=== PATIENT | female | born 1995 | race Caucasian/White ===

== ENCOUNTER 2016-06-16 19:10 | Emergency (ER) | payer MEDICAID ==
--- NOTE | 2016-06-16 19:32 | Emergency Department Record ---
History of Present Illness - General Chief Complaint: Headache Migraine Stated Complaint: EDMONDSON FOR TWO WEEKS Time Seen by Provider: 06/16/16 19:31 Source: Patient Mode of Arrival: Ambulatory Limitations: No limitations - History of Present Illness Initial Comments: The patient is here due to gradual onset of a diffuse global EDMONDSON 2.5 weeks ago. The onset was gradual. The pain is diffuse over the entire head area. She denies any fever, chills, neck pain, vomiting, or visual changes but is having mild nausea. The patient is 12 weeks and believes the nausea could be due to the . She has a long hx of chronic EDMONDSON's similar to this but they montgomery not usually last this long. She did see her OB doctor 2 days ago for the same issue and he instructed her to use warm towels on her shoulders. MD Complaint: Headache Onset/Timin -: Week(s) Onset Description: Gradual Location: Diffuse Severity: Moderate Severity scale (1-10): 8 Quality: Aching Consistency: Constant Improves With: Nothing Worsens With: None Associated Symptoms: Fever, Nausea - Related Data Home Medications Medication Instructions Recorded Confirmed Last Taken Acetaminophen [Tylenol 325Mg] 650 mg PO Q6H PRN 06/16/16 06/16/16 1 Day Ago Pnv95/Ferrous Fumarate/FA 1 each PO DAILY 06/16/16 06/16/16 1 Day Ago [ Caplet] Previous Rx's Medication Instructions Recorded Albuterol Sulfate [Proair Hfa] 1 - 2 puff IH .EVERY 4-6 HOURS PRN 04/25/16 #1 inhaler Butalb/Acetaminophen/Caffeine 1 each PO Q4H #12 tablet 06/16/16 [Fioricet] Allergies Allergy/AdvReac Type Severity Reaction Status Date / Time No Known Drug Allergies Allergy Verified 06/16/16 19:22 Travel Screening - Travel/Exposure Within Last 30 Days Have you traveled within the last 30 days?: No - Travel/Exposure Within Last Year Have you traveled outside the [place] in the last year?: No - Additonal Travel Details Have you been exposed to anyone with a communicable illness?: No - Travel Symptoms Symptom Screening: None Review of Systems Constitutional: Reports: Malaise. Denies: Chills, Fever Eyes: Denies: Eye discharge ENT: Denies: Congestion Respiratory: Reports: Cough (mild.). Denies: Dyspnea Cardiovascular: Denies: Arrhythmia, Chest pain Past Medical History - SOCIAL HISTORY Smoking Status: Current every day smoker Alcohol Use: None Drug Use: None - RESPIRATORY Hx Respiratory Disorders: Yes Hx Bronchitis: Yes - CARDIOVASCULAR Hx Cardio Disorders: No - NEURO Hx Neuro Disorders: Yes Hx Headaches: Yes - GI Hx GI Disorders: Yes Hx Abdominal Pain: Yes Hx Nausea/Vomiting: Yes (NAUSEA) - Hx Genitourinary Disorders: No - ENDOCRINE Hx Endocrine Disorders: No Hx Diabetes: No Hx Thyroid Disease: No - MUSCULOSKELETAL Hx Musculoskeletal Disorders: No Comment:: numb fingers on both hands started during - PSYCH Hx Psych Problems: No - HEMATOLOGY/ONCOLOGY Hx Hematology/Oncology Disorders: No Family Medical History Any Significant Family History?: Yes Hx Cancer: Grandparents Hx Resp Disorders: Mother, Grandparents Physical Exam - General General Appearance: Alert, Oriented x3, Cooperative, No acute distress - Head Head exam: Atraumatic, Normocephalic, Normal inspection (The pain is very reproducible to palpation over the bilateral temporal and parietal area of the scalp.) - Eye Eye exam: Normal appearance, PERRL, EOMI, Other (Neg Papilledema bilaterally.) - ENT ENT exam: Normal exam, Mucous membranes moist, Normal external ear exam, Normal orophraynx, TM's normal bilaterally Throat exam: Normal inspection. negative: Tonsillar erythema, Tonsillar exudate - Neck Neck exam: Normal inspection, Full ROM. negative: Lymphadenopathy, Meningismus (The neck is very supple.), Tenderness - Respiratory Respiratory exam: Normal lung sounds bilaterally. negative: Respiratory distress - Cardiovascular Cardiovascular Exam: Regular rate, Normal rhythm, Normal heart sounds - GI/Abdominal GI/Abdominal exam: Soft, Normal bowel sounds. negative: Tenderness - Extremities Extremities exam: Normal inspection, Full ROM, Normal capillary refill. negative: Tenderness - Neurological Neurological exam: Alert, Normal gait, Oriented X3. negative: Abnormal gait, Altered, Motor sensory deficit Course Vital Signs 06/16/16 19:24 Temperature 99.8 F H Pulse Rate 93 H Respiratory 18 Rate Blood Pressure 134/78 Pulse Ox 98 - Reevaluation(s) Reevaluation #1: The patient is doing better at this time. Her repeat temp is 99.1. Her nausea is improved. 06/16/16 20:32 Reevaluation #2: The patient states her EDMONDSON has resolved at this time. She is feeling better. I did discuss the issues with Dr. Pace and he did want the Morphine shot and have the patient discharged on Fioricet. 06/16/16 21:22 Medical Decision Making - Lab Data Result diagrams: 06/16/16 19:55 06/16/16 19:55 Disposition Disposition: Discharge Clinical Impression: Headache Qualifiers: Headache type: tension-type Headache chronicity pattern: acute headache Intractability: not intractable Qualified Code(s): G44.209 - Tension-type headache, unspecified, not intractable Disposition: Home, Self-Care Condition: (1) Good Instructions: Acute Headache (ED) Additional Instructions: Please take the Fioricet for pain. Please see your OB doctor for recheck next week. Return to the ER if worse. Prescriptions: Butalb/Acetaminophen/Caffeine [Fioricet] 1 each PO Q4H #12 tablet Forms: Patient Portal Access Time of Disposition: 21:24
[2016-06-16] MEDS ORDERED: ACETAMINOPHEN 325 MG TAB PO ONE (19:37)
[2016-06-16] MEDS ORDERED: ONDANSETRON 4 MG ODT TABLET SL ONE (19:37)
[2016-06-16 19:43] LABS: INFLUENZA A NEGATIVE (NEGATIVE); INFLUENZA B NEGATIVE (NEGATIVE)
[2016-06-16 20:02] LABS: BASO % 0.3 % (0-6); GRAN % 58.2 % (47-80); HEMATOCRIT 35.3 % (35.0-47.0); HEMOGLOBIN 12.5 gm/dl (11.6-16.0); LYMPH % 29.4 % (16-45); MEAN CELL VOLUME 84.9 fl (81-97); MEAN CORPUSCULAR HGB CONC 35.4 g/dl (32-36); MEAN PLATELET VOLUME 8.7 fl (7.4-10.4); MONO % 6.1 % (0-9); PLATELET COUNT 300 K/uL (130-400); RED BLOOD COUNT 4.16 M/uL (3.80-5.40); RED CELL DISTRIBUTION WIDTH 12.9 % (11.5-14.5); WHITE BLOOD COUNT W/O DIFF 12.9 K/uL (4.2-12.2)
[2016-06-16 20:16] LABS: ALB/GLOB RATIO 1.3 (1.1-1.8); ALBUMIN 4.3 gm/dL (3.5-5.0); ALKALINE PHOSPHATASE 58 U/L (38-126); ALT/SGPT 47 U/L (9-52); AST/SGOT 21 U/L (14-36); BILIRUBIN,TOTAL 0.25 mg/dL (0.2-1.3); BLOOD UREA NITROGEN 6 mg/dL (7-17); C-REACTIVE PROTEIN 2.5 mg/dL (0.0-0.9); CREATININE 0.8 mg/dL (0.52-1.04); EST GLOMERULAR FILTRATION RATE > 60 ml/min; GLUCOSE,RANDOM 86 mg/dL (70-110); TOTAL PROTEIN 7.5 gm/dL (6.3-8.2)
[2016-06-16 20:33] LABS: URINE APPEARANCE CLEAR; URINE BILIRUBIN NEGATIVE (NEGATIVE); URINE BLOOD NEGATIVE (NEGATIVE); URINE COLOR YELLOW; URINE GLUCOSE (UA) NEGATIVE (NEGATIVE); URINE KETONE NEGATIVE (NEGATIVE); URINE LEUKOCYTE ESTERASE NEGATIVE (NEGATIVE); URINE NITRITE NEGATIVE (NEGATIVE); URINE PROTEIN NEGATIVE (NEGATIVE); URINE UROBILINOGEN 0.2 E.U./dL (0.20 - 1.00)
[2016-06-16] MEDS ORDERED: MORPHINE SULFATE 5 MG/ML PFS IM ONE (20:54)
[2016-06-16] MEDS ORDERED: AL HYDROX/MAG HYDROX 30ML UD PO ONE (21:28)
== END 2016-06-16 21:47 | disposition home or self-care (01) ==
LOC: ER 19:10
DX: G44.209 Tension-type headache, unspecified, not intractable (principal); R11.0 Nausea; Z33.1 Pregnant state, incidental; Z3A.12 12 weeks gestation of pregnancy
CPT/HCPCS: 99283; 96372; 99284; 85025; 86140; 80053; 81003; 87400; J2270

== ENCOUNTER 2017-01-11 04:24 | Emergency (ER) | payer MEDICAID ==
[2017-01-11] MEDS ORDERED: DIPHENHYDRAMINE HCL 25 MG CAPSULE PO ONE (04:37)
--- NOTE | 2017-01-11 04:40 | Emergency Department Record ---
History of Present Illness - General Chief Complaint: General Stated Complaint: ITCHING Time Seen by Provider: 01/11/17 04:37 Source: Patient Mode of Arrival: Ambulatory Limitations: No limitations - History of Present Illness Onset/Timin -: Hour(s) Location: Upper extremity Quality: Other (itching) Consistency: Constant Improves with: None Worsens with: None Associated Symptoms: Denies other symptoms Treatments Prior to Arrival: None - Catrina Coma Scale Eye Response: (4) Open spontaneously Motor Response: (6) Obeys commands Verbal Response: (5) Oriented Crowder Total: 15 - Related Data Home Medications Medication Instructions Recorded Confirmed Last Taken No Home Med [NO HOME MEDS] 01/11/17 01/11/17 Unknown Allergies Allergy/AdvReac Type Severity Reaction Status Date / Time No Known Drug Allergies Allergy Verified 01/11/17 04:30 Travel Screening - Travel/Exposure Within Last 30 Days Have you traveled within the last 30 days?: No - Travel Symptoms Symptom Screening: None Review of Systems Constitutional: Denies: Chills, Fever, Malaise, Night sweats Eyes: Denies: Eye discharge, Eye pain ENT: Denies: Congestion, Ear pain, Epistaxis Respiratory: Denies: Cough, Dyspnea Cardiovascular: Denies: Chest pain, Dyspnea on exertion Endocrine: Denies: Fatigue, Heat or cold intolerance Gastrointestinal: Denies: Abdominal pain, Nausea, Vomiting Genitourinary: Denies: Incontinence, Retention Musculoskeletal: Denies: Arthralgia, Back pain, Gout, Joint swelling Skin: Reports: Pruritus. Denies: Bruising, Change in color, Change in hair/ nails, Rash Neurological: Denies: Abnormal gait, Confusion, Headache, Seizure Psychiatric: Denies: Anxiety Hematological/Lymphatic: Denies: Anemia, Blood Clots Past Medical History - SOCIAL HISTORY Smoking Status: Current every day smoker - RESPIRATORY Hx Respiratory Disorders: Yes Hx Bronchitis: Yes - CARDIOVASCULAR Hx Cardio Disorders: No - NEURO Hx Neuro Disorders: Yes Hx Headaches: Yes - GI Hx GI Disorders: Yes Hx Abdominal Pain: Yes Hx Nausea/Vomiting: Yes (NAUSEA) - Hx Genitourinary Disorders: No - ENDOCRINE Hx Endocrine Disorders: No Hx Diabetes: No Hx Thyroid Disease: No - MUSCULOSKELETAL Hx Musculoskeletal Disorders: No Comment:: numb fingers on both hands started during - PSYCH Hx Psych Problems: No - HEMATOLOGY/ONCOLOGY Hx Hematology/Oncology Disorders: No Family Medical History Any Significant Family History?: Yes Hx Cancer: Grandparents Hx Resp Disorders: Mother, Grandparents Physical Exam - General General Appearance: Alert, Oriented x3, Cooperative, No acute distress Limitations: No limitations - Head Head exam: Atraumatic, Normocephalic, Normal inspection Head exam detail: negative: Abrasion, Contusion, Conklin's sign, General tenderness, Hematoma, Laceration - Eye Eye exam: Normal appearance. negative: Conjunctival injection, Periorbital swelling, Periorbital tenderness, Scleral icterus - ENT Ear exam: negative: Auricular hematoma, Auricular trauma Nasal Exam: negative: Active bleeding, Discharge, Dried blood, Foreign body Mouth exam: negative: Drooling, Laceration, Muffled voice, Tongue elevation - Neck Neck exam: Normal inspection. negative: Meningismus, Tenderness - Respiratory Respiratory exam: Normal lung sounds bilaterally. negative: Rales, Respiratory distress, Rhonchi, Stridor - Cardiovascular Cardiovascular Exam: Regular rate, Normal rhythm, Normal heart sounds - GI/Abdominal GI/Abdominal exam: Soft. negative: Rebound, Rigid, Tenderness - Rectal Rectal exam: Deferred - exam: Deferred - Extremities Extremities exam: Normal inspection. negative: Calf tenderness, Pedal edema, Tenderness - Back Back exam: Denies: CVA tenderness (R), CVA tenderness (L) - Neurological Neurological exam: Alert, Normal gait, Oriented X3 - Psychiatric Psychiatric exam: Normal affect, Normal mood - Skin Skin exam: Normal color. negative: Abrasion Type of lesion: negative: abrasion Course Vital Signs 01/11/17 01/11/17 04:29 04:30 Temperature 98.6 F 98.6 F Pulse Rate [ 84 Pulse Ox Probe] Respiratory 20 Rate Blood Pressure 134/76 [Left Arm] Pulse Ox 100 Disposition Disposition: Discharge Clinical Impression: Itching Disposition: Home, Self-Care Condition: (2) Stable Instructions: Itchy Skin (ED) Additional Instructions: Return to ED if your symptoms worsen or if you have any concerns. Benadryl as directed. Follow-up with your family doctor in 1 week as directed. Forms: Patient Portal Access Time of Disposition: 04:39 Quality - Quality Measures Quality Measures: N/A - Blood Pressure Screening Does Patient Have Any of the Following: No Blood Pressure Classification: Pre-Hypertensive BP Reading Systolic Measurement: 134 Diastolic Measurement: 76 Screening for High Blood Pressure: < Pre-Hypertensive BP, F/U Documented > [ G8950] Pre-Hypertensive Follow-up Interventions: Referral to alternative/primary care provider.
== END 2017-01-11 04:49 | disposition home or self-care (01) ==
LOC: ER 04:24
DX: L50.9 Urticaria, unspecified (principal); L29.9 Pruritus, unspecified
CPT/HCPCS: 99282 ×2; 99283 ×2; 96372; J7512; J1200

== ENCOUNTER 2017-01-11 22:10 | Emergency (ER) | payer MEDICAID ==
[2017-01-11] MEDS ORDERED: DIPHENHYDRAMINE HCL IV 50 MG/ML VIAL IM ONE (23:00)
[2017-01-11] MEDS ORDERED: PREDNISONE 20 MG TAB PO ONE (23:00)
--- NOTE | 2017-01-11 23:06 | Emergency Department Record ---
History of Present Illness - General Chief complaint: Itching Stated complaint: ITCHING Time Seen by Provider: 01/11/17 22:56 Source: Patient Mode of Arrival: Ambulatory Limitations: No limitations - History of Present Illness Initial comments: The patient is here due to an itchy rash for almost one day. She denies any new medicines or foods but believes she was exposed to poison blaire 2 days ago. She describes hives off and on for 1 day with the itching. She denies any trouble swallowing or breathing. The patient has been taking Benadryl with little resolution. The patient denies any new medicines or foods. complaint: Rash Onset/Timin -: Hour(s) Hx Tetanus Toxoid Vaccination: Yes Year of Tetanus Vaccination: 2013 Location: Generalized Severity: Mild Quality: Other Consistency: Getting worse Improves with: None Worsens with: None Context: None Associated symptoms: Denies other symptoms Treatments Prior to Arrival: Benadryl - Related Data Previous Rx's Medication Instructions Recorded Prednisone [Prednisone 20Mg] 20 mg PO ASDIR #15 tab 01/11/17 Allergies Allergy/AdvReac Type Severity Reaction Status Date / Time No Known Drug Allergies Allergy Verified 01/11/17 04:30 Travel Screening - Travel/Exposure Within Last 30 Days Have you traveled within the last 30 days?: No - Travel/Exposure Within Last Year Have you traveled outside the [place] in the last year?: No - Additonal Travel Details Have you been exposed to anyone with a communicable illness?: No - Travel Symptoms Symptom Screening: None Review of Systems Constitutional: Denies: Chills, Fever Eyes: Denies: Eye discharge ENT: Denies: Congestion Respiratory: Denies: Cough, Dyspnea Cardiovascular: Denies: Chest pain Past Medical History - SOCIAL HISTORY Smoking Status: Current every day smoker Alcohol Use: None Drug Use: None - RESPIRATORY Hx Respiratory Disorders: Yes Hx Bronchitis: Yes - CARDIOVASCULAR Hx Cardio Disorders: No - NEURO Hx Neuro Disorders: Yes Hx Headaches: Yes - GI Hx GI Disorders: Yes Hx Abdominal Pain: Yes Hx Nausea/Vomiting: Yes (NAUSEA) - Hx Genitourinary Disorders: No - ENDOCRINE Hx Endocrine Disorders: No Hx Diabetes: No Hx Thyroid Disease: No - MUSCULOSKELETAL Hx Musculoskeletal Disorders: No Comment:: numb fingers on both hands started during - PSYCH Hx Psych Problems: No - HEMATOLOGY/ONCOLOGY Hx Hematology/Oncology Disorders: No Family Medical History Any Significant Family History?: No Hx Cancer: Grandparents Hx Resp Disorders: Mother, Grandparents Physical Exam - General General Appearance: Alert, Oriented x3, Cooperative, No acute distress - Head Head exam: Atraumatic, Normocephalic, Normal inspection - Eye Eye exam: Normal appearance, PERRL - ENT Throat exam: Normal inspection. negative: Tonsillar erythema, Tonsillar exudate - Neck Neck exam: Normal inspection, Full ROM. negative: Tenderness - Respiratory Respiratory exam: Normal lung sounds bilaterally. negative: Respiratory distress - Cardiovascular Cardiovascular Exam: Regular rate, Normal rhythm, Normal heart sounds - GI/Abdominal GI/Abdominal exam: Soft, Normal bowel sounds. negative: Tenderness - Neurological Neurological exam: Alert. negative: Motor sensory deficit - Skin Skin exam: Rash, Urticaria (There are scattered urticarial lesions to the back and trunk with trace facial erythema.) Course Vital Signs 01/11/17 22:49 Temperature 99 F Pulse Rate [ 83 Pulse Ox Probe] Respiratory 20 Rate Blood Pressure 129/81 [Left Arm] Pulse Ox 100 - Reevaluation(s) Reevaluation #1: The patient is doing a lot better at this time. She states her itching has resolved and she is ready for home. 01/11/17 23:21 Disposition Disposition: Discharge Clinical Impression: Dermatitis Disposition: Home, Self-Care Condition: (1) Good Instructions: Urticaria (ED) Additional Instructions: Please continue an OTC oral antihistamine for the itching and continue the Prednisone tomorrow as directed. Please see your PCP if not better in 2 days. Return to the ER for any increased rash, itching, trouble swallowing, or trouble breathing. Prescriptions: Prednisone [Prednisone 20Mg] 20 mg PO ASDIR #15 tab Forms: Patient Portal Access Time of Disposition: 23:23 Quality - Quality Measures Quality Measures: N/A - Blood Pressure Screening Does Patient Have Any of the Following: No Blood Pressure Classification: Pre-Hypertensive BP Reading Systolic Measurement: 122 Diastolic Measurement: 71 Screening for High Blood Pressure: < Pre-Hypertensive BP, F/U Documented > [ G8950] Pre-Hypertensive Follow-up Interventions: Referral to alternative/primary care provider.
== END 2017-01-11 23:39 | disposition home or self-care (01) ==
LOC: ER 22:10
DX: L50.9 Urticaria, unspecified (principal)
CPT/HCPCS: J1200; J7512

== ENCOUNTER 2017-03-20 11:02 | Emergency (ER) | payer MEDICAID ==
[2017-03-20] MEDS ORDERED: DEXAMETHASONE SOD PHOSPHATE 10MG/ML VIAL PO ONE (11:14)
--- NOTE | 2017-03-20 11:20 | Emergency Department Record ---
History of Present Illness - General Chief Complaint: Cough Stated Complaint: COUGH Time Seen by Provider: 03/20/17 11:08 Source: Patient, Family Mode of Arrival: Ambulatory Limitations: No limitations - History of Present Illness Initial Comments: 22 yo female presents with cough for about 4-5 days. The cough is non productive. No fevers. She has associated ear pain on the left and sore throat. She has had her tonsils removed. No swollen glands. Her children have the same cough and were diagnosed with croup. No rash. No vomiting. No chest or abdominal pain. She is a smoker. No asthma history. MD Complaint: Cough, Nasal congestion, Sore throat Onset/Timin -: Days(s) (5) Consistency: Constant Improves With: Nothing Worsens With: Other (Cough) Associated Symptoms: Cough - Related Data Allergies Allergy/AdvReac Type Severity Reaction Status Date / Time No Known Drug Allergies Allergy Verified 03/20/17 11:11 Travel Screening - Travel/Exposure Within Last 30 Days Have you traveled within the last 30 days?: No Review of Systems Constitutional: Denies: Chills, Fever, Malaise, Weakness Eyes: Denies: Eye discharge ENT: Reports: Congestion, Ear pain (left), Throat pain. Denies: Epistaxis Respiratory: Reports: Cough. Denies: Dyspnea, Hemoptysis, Stridor, Wheezes Cardiovascular: Denies: Chest pain, Syncope Endocrine: Denies: Fatigue Gastrointestinal: Reports: Diarrhea. Denies: Abdominal pain, Nausea, Vomiting Genitourinary: Denies: Dyspareunia, Dysuria, Retention, Urgency Musculoskeletal: Denies: Arthralgia, Back pain, Joint swelling, Myalgia Skin: Denies: Bruising, Change in color, Rash Neurological: Denies: Headache, Numbness, Weakness Psychiatric: Denies: Anxiety Hematological/Lymphatic: Denies: Blood Clots, Easy bleeding, Easy bruising, Swollen glands Past Medical History - SOCIAL HISTORY Smoking Status: Current every day smoker Alcohol Use: None Drug Use: None - RESPIRATORY Hx Respiratory Disorders: Yes Hx Bronchitis: Yes Hx Pneumonia: Yes - CARDIOVASCULAR Hx Cardio Disorders: No - NEURO Hx Neuro Disorders: Yes Hx Headaches: Yes - GI Hx GI Disorders: Yes Hx Abdominal Pain: Yes Hx Nausea/Vomiting: Yes (NAUSEA) - Hx Genitourinary Disorders: No - ENDOCRINE Hx Endocrine Disorders: No Hx Diabetes: No Hx Thyroid Disease: No - MUSCULOSKELETAL Hx Musculoskeletal Disorders: No - PSYCH Hx Psych Problems: No - HEMATOLOGY/ONCOLOGY Hx Hematology/Oncology Disorders: No Family Medical History Any Significant Family History?: Yes Hx Cancer: Grandparents Hx Resp Disorders: Mother, Grandparents Physical Exam - General General Appearance: Alert, Oriented x3, Cooperative, No acute distress Limitations: No limitations - Head Head exam: Normal inspection - Eye Eye exam: Normal appearance, PERRL. negative: Conjunctival injection, Scleral icterus - ENT ENT exam: Normal exam, Mucous membranes moist, Normal orophraynx, TM's normal bilaterally (normal TM's bilateral) Ear exam: Normal external inspection. negative: External canal tenderness Nasal Exam: Discharge Mouth exam: Normal external inspection, Tongue normal Teeth exam: Normal inspection. negative: Dental caries Throat exam: Normal inspection, Other (Normal inspection, S/P T and A). negative: Tonsillar erythema, Tonsillomegaly, Tonsillar exudate, R peritonsillar mass, L peritonsillar mass - Neck Neck exam: Normal inspection, Full ROM. negative: Lymphadenopathy, Meningismus , Tenderness - Respiratory Respiratory exam: Normal lung sounds bilaterally. negative: Accessory muscle use, Decreased breath sounds, Rales, Respiratory distress, Rhonchi, Stridor, Wheezes - Cardiovascular Cardiovascular Exam: Regular rate, Normal rhythm, Normal heart sounds - GI/Abdominal GI/Abdominal exam: Soft. negative: Tenderness - Rectal Rectal exam: Deferred - exam: Deferred - Extremities Extremities exam: Normal inspection, Full ROM, Normal capillary refill. negative: Tenderness - Back Back exam: Denies: CVA tenderness (R), CVA tenderness (L) - Neurological Neurological exam: Alert, Normal gait, Oriented X3 - Psychiatric Psychiatric exam: Normal affect, Normal mood. negative: Agitated, Anxious - Skin Skin exam: Dry, Intact, Normal color, Warm Course Vital Signs 03/20/17 11:09 Temperature 98.8 F Pulse Rate 96 H Respiratory 20 Rate Blood Pressure 147/94 Pulse Ox 99 - Reevaluation(s) Reevaluation #1: 03/20/17 11:19 Vitals reviewed Likely viral syndrome with children with croup, she has a non productive cough, no fever or hypoxia DC with instructions for a recheck and return if needed Disposition Disposition: Discharge Clinical Impression: Viral URI with cough Disposition: Home, Self-Care Condition: (1) Good Instructions: Cold Symptoms (ED) Additional Instructions: Return if worse, fever, productive cough or any new concerns Call your doctor for follow up if not improving Time of Disposition: 11:20 Quality - Quality Measures Quality Measures: N/A - Blood Pressure Screening Does Patient Have Any of the Following: No Blood Pressure Classification: Hypertensive Reading Systolic Measurement: 147 Diastolic Measurement: 94 Screening for High Blood Pressure: < Pre-Hypertensive BP, F/U Documented > [ G8950] Pre-Hypertensive Follow-up Interventions: Referral to alternative/primary care provider.
== END 2017-03-20 11:29 | disposition home or self-care (01) ==
LOC: ER 11:02
DX: J06.9 Acute upper respiratory infection, unspecified (principal); R05 Cough; Z87.891 Personal history of nicotine dependence
CPT/HCPCS: 99282

== ENCOUNTER 2017-08-25 21:07 | Emergency (ER) | payer MEDICAID ==
--- NOTE | 2017-08-25 21:28 | Emergency Department Record ---
History of Present Illness - General Chief Complaint: Laceration(s) Stated Complaint: LACERATION ON PINKY OF RT HAND Time Seen by Provider: 08/25/17 21:21 Source: Patient Mode of Arrival: Ambulatory Limitations: No limitations - History of Present Illness Initial Commments: 22 yo female presents to ED for evaluation of a laceration to the right little digit when she was changing the trash, reports that she cut her finger on something sharp in the trash. Patient reports that the injury occurred about 20 minutes ago, denies other injury. Patient reports that her tetanus is UTD, denies health problems at her baseline. Onset/Timin -: Minutes(s) Extremity Location: Right: Hand Place: Home Context: Accidental Associated Symptoms: None Treatments Prior to Arrival: Bandage - [place] Coma Scale Eye Response: (4) Open spontaneously Motor Response: (6) Obeys commands Verbal Response: (5) Oriented [place] Total: 15 - Related Data Hx Tetanus Toxoid Vaccination: Yes Year of Tetanus Vaccination: 2013 Allergies Allergy/AdvReac Type Severity Reaction Status Date / Time No Known Drug Allergies Allergy Unverified 07/04/17 11:53 Review of Systems Constitutional: Denies: Chills, Fever, Malaise, Night sweats Eyes: Denies: Eye discharge, Eye pain ENT: Denies: Congestion, Ear pain, Epistaxis Respiratory: Denies: Cough, Dyspnea Cardiovascular: Denies: Chest pain, Dyspnea on exertion Endocrine: Denies: Fatigue, Heat or cold intolerance Gastrointestinal: Denies: Abdominal pain, Nausea, Vomiting Genitourinary: Denies: Incontinence, Retention Musculoskeletal: Denies: Arthralgia, Back pain, Gout, Joint swelling Skin: Reports: Other (Finger laceration). Denies: Bruising, Change in color Neurological: Denies: Abnormal gait, Confusion, Headache, Seizure Psychiatric: Denies: Anxiety Hematological/Lymphatic: Denies: Anemia, Blood Clots Past Medical History - SOCIAL HISTORY Smoking Status: Current every day smoker Drug Use: None - RESPIRATORY Hx Respiratory Disorders: Yes Hx Bronchitis: Yes Hx Pneumonia: Yes - CARDIOVASCULAR Hx Cardio Disorders: No - NEURO Hx Neuro Disorders: Yes Hx Headaches: Yes - GI Hx GI Disorders: Yes Hx Abdominal Pain: Yes Hx Nausea/Vomiting: Yes (NAUSEA) - Hx Genitourinary Disorders: No - ENDOCRINE Hx Endocrine Disorders: No Hx Diabetes: No Hx Thyroid Disease: No - MUSCULOSKELETAL Hx Musculoskeletal Disorders: No - PSYCH Hx Psych Problems: No - HEMATOLOGY/ONCOLOGY Hx Hematology/Oncology Disorders: No Family Medical History Hx Cancer: Grandparents Hx Resp Disorders: Mother, Grandparents Physical Exam - General General Appearance: Alert, Oriented x3, Cooperative, Mild distress Limitations: No limitations - Head Head exam: Atraumatic, Normocephalic, Normal inspection Head exam detail: negative: Abrasion, Contusion, Conklin's sign, General tenderness, Hematoma, Laceration - Eye Eye exam: Normal appearance. negative: Conjunctival injection, Periorbital swelling, Periorbital tenderness, Scleral icterus - ENT Ear exam: negative: Auricular hematoma, Auricular trauma Nasal Exam: negative: Active bleeding, Discharge, Dried blood, Foreign body Mouth exam: negative: Drooling, Laceration, Muffled voice, Tongue elevation - Neck Neck exam: Normal inspection. negative: Meningismus, Tenderness - Respiratory Respiratory exam: Normal lung sounds bilaterally. negative: Rales, Respiratory distress, Rhonchi, Stridor - Cardiovascular Cardiovascular Exam: Regular rate, Normal rhythm, Normal heart sounds - Rectal Rectal exam: Deferred - exam: Deferred - Extremities Extremities exam: Other (1.5 cm flap-laceration to the palmar surface of the right little digit distally). negative: Calf tenderness, Pedal edema, Tenderness - Back Back exam: Denies: CVA tenderness (R), CVA tenderness (L) - Neurological Neurological exam: Alert, Normal gait, Oriented X3 - Psychiatric Psychiatric exam: Normal affect, Normal mood - Skin Skin exam: Normal color. negative: Abrasion Type of lesion: negative: abrasion Course Vital Signs 08/25/17 21:15 Temperature 98.9 F Pulse Rate [ 82 Pulse Ox Probe] Respiratory 16 Rate Blood Pressure 128/90 [Left Arm] Pulse Ox 99 - Reevaluation(s) Reevaluation #1: 08/25/17 21:25 Procedure Note: 1.5 cm wound was anesthetized with 1.5 mL of 0.25% sensorcaine solution with good anesthesia, wound was visualized for any tendon laceration or FB's, none found. Wound was then repaired with (4) 5-0 Prolene sutures with good cosmesis and hemostasis. Recommended suture removal in 7-10 days as directed. Patient was also counseled that the flap-repair may not survive due to the lack of blood supply distally and the amount of laceration, but would provide new skin to heal below the flap. Patient's tetanus is UTD, and antibiotics do not appear indicated at this time based on examination. Disposition Disposition: Discharge Clinical Impression: Finger laceration Qualifiers: Encounter type: initial encounter Finger: little finger Damage to nail status: without damage Foreign body presence: without foreign body Laterality: right Qualified Code(s): S61.216A - Laceration without foreign body of right little finger without damage to nail, initial encounter Disposition: Home, Self-Care Condition: (2) Stable Instructions: Laceration (ED) Additional Instructions: Return to ED if your symptoms worsen or if you have any concerns. Sutures out in 7-10 days as directed. Follow-up with your family doctor in 1 week as directed. Forms: Patient Portal Access Time of Disposition: 21:29 Quality - Quality Measures Quality Measures: N/A - Blood Pressure Screening Does Patient Have Any of the Following: No Blood Pressure Classification: Hypertensive Reading Systolic Measurement: 128 Diastolic Measurement: 90 Screening for High Blood Pressure: < First Hypertensive BP, F/U Documented > [ G8950] First Hypertensive Follow-up Interventions: Referral to alternative/primary care provider.
== END 2017-08-25 21:56 | disposition home or self-care (01) ==
LOC: ER 21:07
DX: S61.216A Laceration without foreign body of right little finger without damage to nail, initial encounter (principal); W45.8XXA Other foreign body or object entering through skin, initial encounter; F17.210 Nicotine dependence, cigarettes, uncomplicated; Y92.009 Unspecified place in unspecified non-institutional (private) residence as the place of occurrence of the external cause
CPT/HCPCS: 12001; 99283

== ENCOUNTER 2017-11-08 09:21 | Emergency (ER) | payer MEDICAID ==
[2017-11-08 10:04] LABS: BASO % 0.3 % (0-6); EOS % 6.9 % (0-6); GRAN % 63.4 % (47-80); HEMATOCRIT 41.6 % (35.0-47.0); HEMOGLOBIN 13.9 gm/dl (11.6-16.0); LYMPH % 23.5 % (16-45); MEAN CELL VOLUME 86.1 fl (81-97); MEAN CORPUSCULAR HEMOGLOBIN 28.8 pg (27-33); MEAN CORPUSCULAR HGB CONC 33.4 g/dl (32-36); MEAN PLATELET VOLUME 8.9 fl (7.4-10.4); MONO % 5.9 % (0-9); PLATELET COUNT 350 K/uL (130-400); RED BLOOD COUNT 4.83 M/uL (3.80-5.40); RED CELL DISTRIBUTION WIDTH 13.7 % (11.5-14.5); WHITE BLOOD COUNT W/O DIFF 11.2 K/uL (4.2-12.2)
--- NOTE | 2017-11-08 10:05 | Emergency Department Record ---
History of Present Illness - General Chief Complaint: Dizziness Stated Complaint: DIZZINESS Time Seen by Provider: 11/08/17 09:44 Source: Patient (ma in room with pt) Mode of Arrival: Ambulatory Limitations: No limitations - History of Present Illness Initial Comments: Pt work at normal time for work this AM at 3AM. [place] out of "focus" and "odd". No [place] but fells a "throbbing" in her head. No visual changes but "foggy". Mild nausea but no vomiting. No fever or chills, no recent illness. Has two young children at home with Coxsackie and possible strep throat on AB. Pt without sore throat. 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 Sleeping 7 hours a night. No CP or SUNDAR, no weakness. MD Complaint: Lightheadedness Onset/Timin -: Hour(s) Timing: Awoke with symptoms, Sudden onset Description: Lightheadedness History of Same: No History of Trauma: No Severity: Mild Improves With: Remaining still Worsens With: Position - [place] Coma Scale Eye Response: (4) Open spontaneously Motor Response: (6) Obeys commands Verbal Response: (5) Oriented [place] Total: 15 - Related Data Allergies Allergy/AdvReac Type Severity Reaction Status Date / Time No Known Drug Allergies Allergy Verified 11/08/17 09:33 Travel Screening - Travel/Exposure Within Last 30 Days Have you traveled within the last 30 days?: No Review of Systems Constitutional: Denies: Chills, Fever, Malaise, Night sweats, Weakness Eyes: Reports: Vision change. Denies: Eye discharge, Photophobia ENT: Denies: Congestion, Ear pain, Hearing loss, Throat pain Respiratory: Denies: Cough, Dyspnea, Wheezes Cardiovascular: Denies: Chest pain Endocrine: Reports: Fatigue. Denies: Polydipsia, Polyuria Gastrointestinal: Reports: Nausea. Denies: Abdominal pain, Diarrhea, Vomiting Genitourinary: Denies: Abnormal menses Musculoskeletal: Denies: Arthralgia Skin: Denies: Bruising Neurological: Denies: Abnormal gait, Headache, Tingling, Tremors, Weakness Psychiatric: Denies: Anxiety Hematological/Lymphatic: Denies: Anemia Past Medical History - SOCIAL HISTORY Smoking Status: Current every day smoker Alcohol Use: None Drug Use: None - RESPIRATORY Hx Respiratory Disorders: Yes Hx Bronchitis: Yes Hx Pneumonia: Yes - CARDIOVASCULAR Hx Cardio Disorders: No - NEURO Hx Neuro Disorders: Yes Hx Headaches: Yes - GI Hx GI Disorders: Yes Hx Abdominal Pain: Yes Hx Nausea/Vomiting: Yes (NAUSEA) - Hx Genitourinary Disorders: No - ENDOCRINE Hx Endocrine Disorders: No Hx Diabetes: No Hx Thyroid Disease: No - MUSCULOSKELETAL Hx Musculoskeletal Disorders: No Comment:: numb fingers on both hands started during - PSYCH Hx Psych Problems: No - HEMATOLOGY/ONCOLOGY Hx Hematology/Oncology Disorders: No Family Medical History Any Significant Family History?: Yes Hx Cancer: Grandparents Hx Resp Disorders: Mother, Grandparents Physical Exam - General General Appearance: Alert, Oriented x3, Cooperative, No acute distress Limitations: No limitations - Head Head exam: Atraumatic - Eye Eye exam: Normal appearance, PERRL, EOMI. negative: Conjunctival injection, Nystagmus - ENT ENT exam: Normal exam, Mucous membranes moist, Normal external ear exam, Normal orophraynx, TM's normal bilaterally - Neck Neck exam: Normal inspection - Respiratory Respiratory exam: Normal lung sounds bilaterally. negative: Wheezes - Cardiovascular Cardiovascular Exam: Regular rate, Normal rhythm - GI/Abdominal GI/Abdominal exam: Soft, Normal bowel sounds. negative: Rebound, Tenderness - Rectal Rectal exam: Deferred - exam: Deferred - Extremities Extremities exam: Normal inspection. negative: Tenderness - Back Back exam: Reports: Normal inspection. Denies: Tenderness - Neurological Neurological exam: Alert, Normal gait, Oriented X3 - Psychiatric Psychiatric exam: Normal affect, Normal mood - Skin Skin exam: Normal color. negative: Rash Course Vital Signs 11/08/17 09:30 Temperature 98.8 F Pulse Rate 79 Respiratory 16 Rate Blood Pressure 123/73 Pulse Ox 98 - Reevaluation(s) Reevaluation #1: 11/08/17 11:09 labs reviewed and normal with concentrated urine. 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 IV fluids and discussed need to hydrate and rest. Pt feeling some better. Has follow up with PMD> Medical Decision Making - Management Options MDM Management: No Additional Work-up Planned - Data Complexity MDM Data: Labs Ordered and/or Reviewed, Independent Visualization of Image, Tracing, or Specimen - Lab Data Result diagrams: 11/08/17 09:55 11/08/17 09:55 Lab Results 11/08/17 Range/Units 09:46 POC Glucose 105 (70-110) mg/dL Disposition Disposition: Discharge Clinical Impression: Dehydration syndrome Disposition: Home, Self-Care Condition: (2) Stable Instructions: Dehydration (ED) Forms: Patient Portal Access Quality - Quality Measures Quality Measures: N/A - Blood Pressure Screening Does Patient Have Any of the Following: No Blood Pressure Classification: Pre-Hypertensive BP Reading Systolic Measurement: 123 Diastolic Measurement: 73 Screening for High Blood Pressure: < Pre-Hypertensive BP, F/U Documented > [ G8950] Pre-Hypertensive Follow-up Interventions: Lifestyle modifications. Lifestyle Modification: Increased Physical Activity
[2017-11-08] MEDS: 0.9 % SODIUM CHLORIDE 1000ML 1,000 ML IV ONE (10:06)
[2017-11-08 10:07] LABS: URINE APPEARANCE CLEAR; URINE BILIRUBIN NEGATIVE (NEGATIVE); URINE BLOOD SMALL (NEGATIVE); URINE COLOR YELLOW; URINE GLUCOSE (UA) NEGATIVE (NEGATIVE); URINE KETONE TRACE (NEGATIVE); URINE LEUKOCYTE ESTERASE NEGATIVE (NEGATIVE); URINE NITRITE NEGATIVE (NEGATIVE); URINE PROTEIN NEGATIVE (NEGATIVE)
[2017-11-08 10:13] LABS: BLOOD UREA NITROGEN 9 mg/dL (6-20); CREATININE 0.6 mg/dL (0.5-0.9); EST GLOMERULAR FILTRATION RATE > 60 mL/min
[2017-11-08] MEDS: DIPHENHYDRAMINE HCL 50 MG/ML VIAL IVP ONE (10:13)
[2017-11-08 10:16] LABS: GLUCOSE,RANDOM 108 mg/dL (74-109)
[2017-11-08 10:37] LABS: URINE RBC 0 - 2 (NONE SEEN); URINE WBC 0 - 2 (0-2/hpf)
[2017-11-08 10:38] LABS: URINE BACTERIA FEW
== END 2017-11-08 11:33 | disposition home or self-care (01) ==
LOC: ER 09:21
DX: E86.0 Dehydration (principal); R42 Dizziness and giddiness; R11.0 Nausea; R51 Headache; F17.210 Nicotine dependence, cigarettes, uncomplicated
CPT/HCPCS: 36416; 80048; 81001; 81025; 82948; 85025; 96361; 96374; 99284; J1200; J7030

== ENCOUNTER 2017-12-04 16:16 | Emergency (ER) | payer MEDICAID ==
[2017-12-04 17:38] LABS: BASO % 0.3 % (0-6); EOS % 10.1 % (0-6); GRAN % 55.4 % (47-80); HEMATOCRIT 41.9 % (35.0-47.0); HEMOGLOBIN 13.9 gm/dl (11.6-16.0); LYMPH % 26.8 % (16-45); MEAN CELL VOLUME 87.1 fl (81-97); MEAN CORPUSCULAR HEMOGLOBIN 28.9 pg (27-33); MEAN CORPUSCULAR HGB CONC 33.2 g/dl (32-36); MEAN PLATELET VOLUME 9.1 fl (7.4-10.4); MONO % 7.4 % (0-9); PLATELET COUNT 338 K/uL (130-400); RED BLOOD COUNT 4.81 M/uL (3.80-5.40); URINE APPEARANCE CLEAR; URINE BILIRUBIN NEGATIVE (NEGATIVE); URINE BLOOD NEGATIVE (NEGATIVE); URINE COLOR YELLOW; URINE GLUCOSE (UA) NEGATIVE (NEGATIVE); URINE KETONE NEGATIVE (NEGATIVE); URINE LEUKOCYTE ESTERASE NEGATIVE (NEGATIVE); URINE NITRITE NEGATIVE (NEGATIVE); URINE PROTEIN NEGATIVE (NEGATIVE); WHITE BLOOD COUNT W/O DIFF 13.3 K/uL (4.2-12.2)
[2017-12-04 17:40] LABS: HCG,QUALITATIVE URINE NEGATIVE (NEGATIVE)
[2017-12-04 17:47] LABS: BLOOD UREA NITROGEN 13 mg/dL (6-20)
[2017-12-04 17:48] LABS: CREATININE 0.5 mg/dL (0.5-0.9); EST GLOMERULAR FILTRATION RATE > 60 mL/min; TOTAL PROTEIN 7.1 g/dL (6.6-8.7)
[2017-12-04 17:50] LABS: GLUCOSE,RANDOM 96 mg/dL (74-109)
[2017-12-04 17:53] LABS: ALB/GLOB RATIO 1.4 (1.1-1.8); ALBUMIN 4.2 g/dL (4.0-5.0); ALKALINE PHOSPHATASE 65 U/L (35-104); ALT/SGPT 13 U/L (<33); AST/SGOT 12 U/L (10.0-35.0); LIPASE 31 U/L (13-60)
--- NOTE | 2017-12-04 17:57 | Emergency Department Record ---
History of Present Illness - General Chief Complaint: Abdominal Pain Stated Complaint: ABDOMINAL PAIN/LOWER BACK PAIN Time Seen by Provider: 12/04/17 17:10 Source: Patient Mode of Arrival: Ambulatory Limitations: No limitations - History of Present Illness Initial Comments: lower abd pain for 3 days that feels like previous appendicitis. nothing makes better or worse. no uti symptoms. denies vaginal discharge MD Complaint: Abdominal pain -: Days(s) Location: Suprapubic Radiation: Back Severity scale (1-10): 6 Improves With: Nothing Treatments Prior to Arrival: NSAIDs - Related Data LMP Date: 11/19/17 LMP (females 10-50): 3 weeks ago Patient : No Allergies Allergy/AdvReac Type Severity Reaction Status Date / Time No Known Drug Allergies Allergy Verified 11/08/17 09:33 Travel Screening - Travel/Exposure Within Last 30 Days Have you traveled within the last 30 days?: No - Travel/Exposure Within Last Year Have you traveled outside the [place] in the last year?: No - Additonal Travel Details Have you been exposed to anyone with a communicable illness?: No - Travel Symptoms Symptom Screening: None Review of Systems Reviewed: No additional complaints except as noted below Constitutional: Reports: As per HPI. Denies: Chills, Fever, Malaise, Night sweats, Weakness, Weight change Eyes: Reports: As per HPI. Denies: Eye discharge, Eye pain, Photophobia, Vision change ENT: Reports: As per HPI. Denies: Congestion, Dental pain, Ear pain, Epistaxis , Hearing loss, Throat pain Respiratory: Reports: As per HPI. Denies: Cough, Dyspnea, Hemoptysis, Stridor, Wheezes Cardiovascular: Reports: As per HPI. Denies: Arrhythmia, Chest pain, Dyspnea on exertion, Edema, Murmurs, Orthopnea, Palpitations, Paroxysmal nocturnal dyspnea, Rheumatic Fever, Syncope Endocrine: Reports: As per HPI. Denies: Fatigue, Heat or cold intolerance, Polydipsia, Polyuria Gastrointestinal: Reports: As per HPI, Abdominal pain, Nausea. Denies: Constipation, Diarrhea, Hematemesis, Hematochezia, Melena, Vomiting Genitourinary: Reports: As per HPI. Denies: Abnormal menses, Discharge, Dyspareunia, Dysuria, Frequency, Hematuria, Incontinence, Retention, Urgency Musculoskeletal: Reports: As per HPI. Denies: Arthralgia, Back pain, Gout, Joint swelling, Myalgia, Neck pain Skin: Reports: As per HPI. Denies: Bruising, Change in color, Change in hair/ nails, Lesions, Pruritus, Rash Neurological: Reports: As per HPI. Denies: Abnormal gait, Confusion, Headache, Numbness, Paresthesias, Seizure, Tingling, Tremors, Vertigo, Weakness Psychiatric: Reports: As per HPI. Denies: Anxiety, Auditory hallucinations, Depression, Homicidal thoughts, Suicidal thoughts, Visual hallucinations Hematological/Lymphatic: Reports: As per HPI. Denies: Anemia, Blood Clots, Easy bleeding, Easy bruising, Swollen glands Past Medical History - SOCIAL HISTORY Smoking Status: Current every day smoker Alcohol Use: Occasional Drug Use: None - RESPIRATORY Hx Respiratory Disorders: Yes Hx Bronchitis: Yes Hx Pneumonia: Yes - CARDIOVASCULAR Hx Cardio Disorders: No - NEURO Hx Neuro Disorders: Yes Hx Headaches: Yes - GI Hx GI Disorders: Yes Hx Abdominal Pain: Yes Hx Nausea/Vomiting: Yes (NAUSEA) Comment:: hx of pain with gall bladder and appendix - Hx Genitourinary Disorders: No - ENDOCRINE Hx Endocrine Disorders: No Hx Diabetes: No Hx Thyroid Disease: No - MUSCULOSKELETAL Hx Musculoskeletal Disorders: No Comment:: numb fingers on both hands started during - PSYCH Hx Psych Problems: No - HEMATOLOGY/ONCOLOGY Hx Hematology/Oncology Disorders: No Family Medical History Any Significant Family History?: No Hx Cancer: Grandparents Hx Resp Disorders: Mother, Grandparents Physical Exam - General General Appearance: Alert, Oriented x3, Cooperative, Mild distress - Head Head exam: Normal inspection - Eye Eye exam: Normal appearance, PERRL, EOMI Pupils: Normal accommodation - ENT ENT exam: Normal exam, Mucous membranes moist, Normal external ear exam, Normal orophraynx Ear exam: Normal external inspection. negative: External canal tenderness Nasal Exam: Normal inspection. negative: Discharge, Sinus tenderness Mouth exam: Normal external inspection, Tongue normal Teeth exam: Normal inspection. negative: Dental caries Throat exam: Normal inspection. negative: Tonsillar erythema, Tonsillar exudate - Neck Neck exam: Normal inspection, Full ROM. negative: Tenderness - Respiratory Respiratory exam: Normal lung sounds bilaterally. negative: Respiratory distress - Cardiovascular Cardiovascular Exam: Regular rate, Normal rhythm, Normal heart sounds - GI/Abdominal GI/Abdominal exam: Soft, Normal bowel sounds, Tenderness - Rectal Rectal exam: Deferred - exam: Normal bimanual exam, Normal external exam, Normal speculum exam - Extremities Extremities exam: Normal inspection, Full ROM, Normal capillary refill. negative: Tenderness - Back Back exam: Reports: Normal inspection, Full ROM. Denies: Muscle spasm, Rash noted, Tenderness - Neurological Neurological exam: Alert, CN II-XII intact, Normal gait, Oriented X3 - Psychiatric Psychiatric exam: Normal affect, Normal mood - Skin Skin exam: Dry, Intact, Normal color, Warm Course Vital Signs 12/04/17 16:30 Temperature 98.6 F Pulse Rate 86 Respiratory 16 Rate Blood Pressure 134/88 Pulse Ox 98 - Reevaluation(s) Reevaluation #1: 12/04/17 19:07 ct neg Medical Decision Making - Lab Data Result diagrams: 12/04/17 17:20 12/04/17 17:20 Lab Results 12/04/17 12/04/17 Range/Units 17:20 17:20 WBC 13.3 H (4.2-12.2) K/uL RBC 4.81 (3.80-5.40) M/uL Hgb 13.9 (11.6-16.0) gm/dl Hct 41.9 (35.0-47.0) % MCV 87.1 (81-97) fl MCH 28.9 (27-33) pg MCHC 33.2 (32-36) g/dl RDW 13.0 (11.5-14.5) % Plt Count 338 (130-400) K/uL MPV 9.1 (7.4-10.4) fl Gran % 55.4 (47-80) % Lymphocytes % 26.8 (16-45) % Monocytes % 7.4 (0-9) % Eosinophils % 10.1 H (0-6) % Basophils % 0.3 (0-6) % Urine Color Yellow Urine Appearance Clear Urine pH 6.0 (5.0-8.0) Ur Specific [place] 1.020 (1.002-1.030) Urine Protein Negative (NEGATIVE) Urine Glucose (UA) Negative (NEGATIVE) Urine Ketones Negative (NEGATIVE) Urine Blood Negative (NEGATIVE) Urine Nitrite Negative (NEGATIVE) Urine Bilirubin Negative (NEGATIVE) Urine Urobilinogen 1.0 (0.20 - 1.00) E.U./dL Ur Leukocyte Esterase Negative (NEGATIVE) Urine HCG, Qual Negative (NEGATIVE) Disposition Disposition: Discharge Clinical Impression: Abdominal pain Qualifiers: Abdominal location: lower abdomen, unspecified Qualified Code(s): R10.30 - Lower abdominal pain, unspecified Disposition: Home, Self-Care Condition: (1) Good Instructions: Abdominal Pain (ED) Additional Instructions: follow up with family doctor. return sooner if worse. recheck idf abd pain gets worse Quality - Quality Measures Quality Measures: N/A - Blood Pressure Screening Does Patient Have Any of the Following: No Blood Pressure Classification: Pre-Hypertensive BP Reading Systolic Measurement: 134 Diastolic Measurement: 88 Screening for High Blood Pressure: < Pre-Hypertensive BP, F/U Documented > [ G8950] Pre-Hypertensive Follow-up Interventions: Follow-up with rescreen every year.
--- NOTE | 2017-12-05 13:01 | CT SCAN REPORT ---
EXAM: EMERGENCY CT OF THE ABDOMEN AND PELVIS WITHOUT CONTRAST HISTORY: ABDOMINAL PAIN LOWER STOMACH FOR THREE DAYS. PRIOR CHOLECYSTECTOMY AND APPENDECTOMY. TECHNIQUE: Axial CT scan of the abdomen and pelvis was performed without oral or IV contrast. Comparison: CT of the abdomen and pelvis 09/19/15. FINDINGS: The gallbladder and appendix are not identified consistent with the surgical history. No intrarenal calculi identified on either side. No hydronephrosis or hydroureter is seen. As such it is quite difficult to follow the entire course of both ureters in their nondilated state throughout the retroperitoneum and pelvis, but no definite ureteral calculus seen on either side and no bladder calculus evident. Evaluation of the bowel and viscera is very limited without oral or IV contrast. Given this limitation, no definite hepatic, splenic, adrenal, pancreatic, or renal mass identified. No free intraperitoneal air or free intraperitoneal fluid identified. Some hypertrophic spurring in the lower thoracic spine. IMPRESSION: 1. POSTOP CHOLECYSTECTOMY AND APPENDECTOMY. 2. NO DEFINITE URINARY TRACT CALCULI OR HYDRONEPHROSIS EVIDENT. 3. NO FREE AIR OR FREE FLUID EVIDENT. JOB NUMBER: [id number] [facility]
== END 2017-12-04 19:18 | disposition home or self-care (01) ==
LOC: ER 16:16
DX: R10.30 Lower abdominal pain, unspecified (principal); M54.5 Low back pain; R11.0 Nausea; F17.210 Nicotine dependence, cigarettes, uncomplicated; Z90.49 Acquired absence of other specified parts of digestive tract
CPT/HCPCS: 74176; 80053; 81003; 81025; 83690; 85025; 87210; 99284

== ENCOUNTER 2018-11-27 22:46 | Emergency (ER) | payer MEDICAID ==
[2018-11-27] MEDS ORDERED: DIPHENHYDRAMINE HCL 25 MG CAPSULE PO ONE (22:51)
[2018-11-27] MEDS ORDERED: HYDROCORTISONE 1% CREAM 28.35 GM TUBE TOP PRN (22:51)
--- NOTE | 2018-11-27 22:53 | Emergency Department Record ---
History of Present Illness - General Chief complaint: Rash Stated complaint: RASH UPPER TORSO Time Seen by Provider: 11/27/18 22:51 Source: Patient Mode of Arrival: Ambulatory Limitations: No limitations - History of Present Illness Initial comments: 23 yo female presents to ED for evaluation of an itchy rash that began approximately 30 minutes prior to arrival at home. Patient reports that she started itching the left side of her face and neck, denies any new medications, topical treatments, or medications. Patient reports that she has been under stress regarding cardiac testing that will be occurring tomorrow. Patient also reports that she is approximately 14 weeks . Patient denies throat swelling, wheezing, or difficulty in swallowing on examination. MD complaint: Rash Onset/Timin -: Minutes(s) Hx Tetanus Toxoid Vaccination: Yes Year of Tetanus Vaccination: 2013 Location: Neck, Chest Severity: Mild Quality: Other (Itching) Consistency: Constant Improves with: None Worsens with: None Context: None Associated symptoms: Denies other symptoms Treatments Prior to Arrival: None - Related Data Allergies Allergy/AdvReac Type Severity Reaction Status Date / Time No Known Drug Allergies Allergy Unverified 07/12/18 12:47 Review of Systems Constitutional: Denies: Chills, Fever, Malaise, Night sweats Eyes: Denies: Eye discharge, Eye pain ENT: Denies: Congestion, Ear pain, Epistaxis Respiratory: Denies: Cough, Dyspnea Cardiovascular: Denies: Chest pain, Dyspnea on exertion Endocrine: Denies: Fatigue, Heat or cold intolerance Gastrointestinal: Denies: Abdominal pain, Nausea, Vomiting Genitourinary: Denies: Incontinence, Retention Musculoskeletal: Denies: Arthralgia, Back pain Skin: Reports: Rash. Denies: Bruising, Change in color Neurological: Denies: Abnormal gait, Confusion, Headache, Seizure Psychiatric: Denies: Anxiety Hematological/Lymphatic: Denies: Anemia, Blood Clots Past Medical History - SOCIAL HISTORY Smoking Status: Current every day smoker Drug Use: None - RESPIRATORY Hx Respiratory Disorders: Yes Hx Bronchitis: Yes Hx Pneumonia: Yes - CARDIOVASCULAR Hx Cardio Disorders: No - NEURO Hx Neuro Disorders: Yes Hx Headaches: Yes - GI Hx GI Disorders: Yes Hx Abdominal Pain: Yes Hx Nausea/Vomiting: Yes (NAUSEA) Comment:: hx of pain with gall bladder and appendix - Hx Genitourinary Disorders: No - ENDOCRINE Hx Endocrine Disorders: No Hx Diabetes: No Hx Thyroid Disease: No - MUSCULOSKELETAL Hx Musculoskeletal Disorders: No Comment:: numb fingers on both hands started during - PSYCH Hx Psych Problems: No - HEMATOLOGY/ONCOLOGY Hx Hematology/Oncology Disorders: No Family Medical History Hx Cancer: Grandparents Hx Resp Disorders: Mother, Grandparents Physical Exam - General General Appearance: Alert, Oriented x3, Cooperative, No acute distress Limitations: No limitations - Head Head exam: Atraumatic, Normocephalic, Normal inspection Head exam detail: negative: Abrasion, Contusion, Conklin's sign, General tenderness, Hematoma, Laceration - Eye Eye exam: Normal appearance. negative: Conjunctival injection, Periorbital swelling, Periorbital tenderness, Scleral icterus - ENT Ear exam: negative: Auricular hematoma, Auricular trauma Nasal Exam: negative: Active bleeding, Discharge, Dried blood, Foreign body Mouth exam: negative: Drooling, Laceration, Muffled voice, Tongue elevation - Neck Neck exam: Other (Mild urticaria are present to the left neck, submandibular region without evidence for systemic allergic reaction.) - Respiratory Respiratory exam: Normal lung sounds bilaterally. negative: Rales, Respiratory distress, Rhonchi, Stridor - Cardiovascular Cardiovascular Exam: Regular rate, Normal rhythm, Normal heart sounds - GI/Abdominal GI/Abdominal exam: Soft. negative: Rebound, Rigid, Tenderness - Rectal Rectal exam: Deferred - exam: Deferred - Extremities Extremities exam: Normal inspection. negative: Pedal edema, Tenderness - Back Back exam: Denies: CVA tenderness (R), CVA tenderness (L) - Neurological Neurological exam: Alert, Normal gait, Oriented X3 - Psychiatric Psychiatric exam: Normal affect, Normal mood - Skin Skin exam: Rash, Urticaria. negative: Abrasion Type of lesion: negative: abrasion Distribution of rash: Chest, Neck Description of rash: Urticarial Course - Reevaluation(s) Reevaluation #1: 11/27/18 22:59 Examination appears c/w mild urticarial reaction to the left neck and chest, approximately 2-3% TBSA. Recommended Topical hydrocortisone and Benadryl as needed for symptoms. Patient denies throat swelling, wheezing, or difficulty swallowing. Patient appears stable for discharge at this time. Disposition Disposition: Discharge Clinical Impression: Hives Disposition: Home, Self-Care Condition: (2) Stable Instructions: Urticaria (ED) Additional Instructions: Return to ED if your symptoms worsen or if you have any concerns. Benadryl, Hydrocortisone as directed. Follow-up with your family doctor in 3-5 days as directed. Forms: Patient Portal Access Time of Disposition: 22:53 Quality - Quality Measures Quality Measures: N/A - Blood Pressure Screening Does Patient Have Any of the Following: No Blood Pressure Classification: Pre-Hypertensive BP Reading Systolic Measurement: 140 Diastolic Measurement: 88 Screening for High Blood Pressure: < Pre-Hypertensive BP, F/U Documented > [G8950] Pre-Hypertensive Follow-up Interventions: Referral to alternative/primary care provider.
== END 2018-11-27 23:08 | disposition home or self-care (01) ==
LOC: ER 22:46
DX: L50.9 Urticaria, unspecified (principal); Z33.1 Pregnant state, incidental
CPT/HCPCS: 99282

== ENCOUNTER 2019-06-01 10:53 | Emergency (ER) | payer MEDICAID ==
[2019-06-01] MEDS ORDERED: ONDANSETRON HCL IV 4 MG/2 ML VIAL IV ONE (11:12)
[2019-06-01] MEDS ORDERED: 0.9 % SODIUM CHLORIDE 1,000 ML BAG IV ONE (11:12)
[2019-06-01] MEDS ORDERED: KETOROLAC 30 MG/ML VIAL IVP ONE (11:12)
[2019-06-01] MEDS ORDERED: TOPICAL LIDOCAINE W/ EPI 5 ML TOP ONE (11:32)
[2019-06-01 11:33] LABS: ABSOLUTE NEUTROPHIL COUNT 11.06; BASO % 0.6 % (0-6); EOS % 7.7 % (0-6); GRAN % 64.6 % (47-80); HEMATOCRIT 39.2 % (35.0-47.0); HEMOGLOBIN 12.4 gm/dl (11.6-16.0); LYMPH % 21.7 % (16-45); MEAN CELL VOLUME 88.5 fl (81-97); MEAN CORPUSCULAR HGB CONC 31.6 g/dl (32-36); MEAN PLATELET VOLUME 8.6 fl (7.4-10.4); MONO % 5.4 % (0-9); PLATELET COUNT 671 K/uL (130-400); RED BLOOD COUNT 4.43 M/uL (3.80-5.40); RED CELL DISTRIBUTION WIDTH 12.9 % (11.5-14.5); WHITE BLOOD COUNT W/O DIFF 17.1 K/uL (4.2-12.2)
[2019-06-01] MEDS ORDERED: HYDROMORPHONE HCL 2 MG/ML VIAL IVP ONE ×3 (11:38→15:26)
--- NOTE | 2019-06-01 11:39 | Emergency Department Record ---
History of Present Illness - General Chief complaint: Flank Pain Stated complaint: RIGHT SIDE PAIN Time Seen by Provider: 06/01/19 11:05 Source: Patient Mode of Arrival: Ambulatory Limitations: No limitations - History of Present Illness Initial comments: pt had a csection 11 days ago. she started getting r flank back pain 2 days ago and it has gotten progressively worse. it is made worse with inspiration. Complaint: Other Onset/Timin -: Days(s) Severity: Moderate Severity scale (1-10): 10 Quality: Aching Consistency: Constant Patient : No - Related Data Home Medications Medication Instructions Recorded Confirmed Last Taken No Home Med [NO HOME MEDS] 06/01/19 06/01/19 Unknown Allergies Allergy/AdvReac Type Severity Reaction Status Date / Time No Known Drug Allergies Allergy Verified 06/01/19 11:01 Travel Screening - Travel/Exposure Within Last 30 Days Have you traveled within the last 30 days?: No - Travel/Exposure Within Last Year Have you traveled outside the [place] in the last year?: No - Travel Symptoms Symptom Screening: None Review of Systems Reviewed: No additional complaints except as noted below Constitutional: Reports: As per HPI. Denies: Chills, Fever, Malaise, Night sweats, Weakness, Weight change Eyes: Reports: As per HPI. Denies: Eye discharge, Eye pain, Photophobia, Vision change ENT: Reports: As per HPI. Denies: Congestion, Dental pain, Ear pain, Epistaxis, Hearing loss, Throat pain Respiratory: Reports: As per HPI, Dyspnea. Denies: Cough, Hemoptysis, Stridor, Wheezes Cardiovascular: Reports: As per HPI. Denies: Arrhythmia, Chest pain, Dyspnea on exertion, Edema, Murmurs, Orthopnea, Palpitations, Paroxysmal nocturnal dyspnea, Rheumatic Fever, Syncope Endocrine: Reports: As per HPI. Denies: Fatigue, Heat or cold intolerance, Polydipsia, Polyuria Gastrointestinal: Reports: As per HPI. Denies: Abdominal pain, Constipation, Diarrhea, Hematemesis, Hematochezia, Melena, Nausea, Vomiting Genitourinary: Reports: As per HPI. Denies: Abnormal menses, Discharge, Dyspareunia, Dysuria, Frequency, Hematuria, Incontinence, Retention, Urgency Musculoskeletal: Reports: As per HPI, Back pain. Denies: Arthralgia, Gout, Joint swelling, Myalgia, Neck pain Skin: Reports: As per HPI. Denies: Bruising, Change in color, Change in hair/nails, Lesions, Pruritus, Rash Neurological: Reports: As per HPI. Denies: Abnormal gait, Confusion, Headache, Numbness, Paresthesias, Seizure, Tingling, Tremors, Vertigo, Weakness Psychiatric: Reports: As per HPI. Denies: Anxiety, Auditory hallucinations, Depression, Homicidal thoughts, Suicidal thoughts, Visual hallucinations Hematological/Lymphatic: Reports: As per HPI. Denies: Anemia, Blood Clots, Easy bleeding, Easy bruising, Swollen glands Past Medical History - SOCIAL HISTORY Smoking Status: Current every day smoker Alcohol Use: None Drug Use: None - RESPIRATORY Hx Respiratory Disorders: Yes Hx Bronchitis: Yes Hx Pneumonia: Yes - CARDIOVASCULAR Hx Cardio Disorders: No - NEURO Hx Neuro Disorders: Yes Hx Headaches: Yes - GI Hx GI Disorders: Yes Hx Abdominal Pain: Yes Hx Nausea/Vomiting: Yes (NAUSEA) Comment:: hx of pain with gall bladder and appendix - Hx Genitourinary Disorders: No - ENDOCRINE Hx Endocrine Disorders: No Hx Diabetes: No Hx Thyroid Disease: No - MUSCULOSKELETAL Hx Musculoskeletal Disorders: No Comment:: numb fingers on both hands started during - PSYCH Hx Psych Problems: No - HEMATOLOGY/ONCOLOGY Hx Hematology/Oncology Disorders: No Family Medical History Any Significant Family History?: Yes Hx Cancer: Grandparents Hx Resp Disorders: Mother, Grandparents Physical Exam - General General Appearance: Alert, Oriented x3, Cooperative, Moderate distress - Head Head exam: Normal inspection - Eye Eye exam: Normal appearance, PERRL, EOMI Pupils: Normal accommodation - ENT ENT exam: Normal exam, Mucous membranes moist, Normal external ear exam, Normal orophraynx Ear exam: Normal external inspection. negative: External canal tenderness Nasal Exam: Normal inspection. negative: Discharge, Sinus tenderness Mouth exam: Normal external inspection, Tongue normal Teeth exam: Normal inspection. negative: Dental caries Throat exam: Normal inspection. negative: Tonsillar erythema, Tonsillar exudate - Neck Neck exam: Normal inspection, Full ROM. negative: Tenderness - Respiratory Respiratory exam: Normal lung sounds bilaterally. negative: Respiratory distress - Cardiovascular Cardiovascular Exam: Regular rate, Normal rhythm, Normal heart sounds - GI/Abdominal GI/Abdominal exam: Soft, Normal bowel sounds. negative: Tenderness - Rectal Rectal exam: Deferred - exam: Deferred - Extremities Extremities exam: Normal inspection, Full ROM, Normal capillary refill. negative: Tenderness - Back Back exam: Reports: CVA tenderness (R), Full ROM. Denies: Muscle spasm, Rash noted, Tenderness - Neurological Neurological exam: Alert, CN II-XII intact, Normal gait, Oriented X3 - Psychiatric Psychiatric exam: Normal affect, Normal mood - Skin Skin exam: Dry, Intact, Normal color, Warm Course Vital Signs 06/01/19 10:55 Temperature 98.8 F Pulse Rate 79 Respiratory 20 Rate Blood Pressure 180/91 Pulse Ox 99 - Reevaluation(s) Reevaluation #1: 06/01/19 14:26 d/w dr seay and dr lynne who agreed w heparin since she is postop and bleeding vaginally Reevaluation #2: 06/01/19 14:37 pt arrived with htn but she was in severe pain. bp is coming down w pain control. Medical Decision Making - Lab Data Result diagrams: 06/01/19 11:05 06/01/19 11:05 Disposition Disposition: Transfer Clinical Impression: hypertension Acute pulmonary embolism Qualifiers: Pulmonary embolism type: other Acute cor pulmonale presence: without acute cor pulmonale Qualified Code(s): I26.99 - Other pulmonary embolism without acute cor pulmonale Hypertension Qualifiers: Hypertension type: essential hypertension Qualified Code(s): I10 - Essential (primary) hypertension Disposition: Acute Care Hospital Transfer Transfer To: [facility] Reason For Transfer: post op ob with PE Accepting Physician: dr lynne Time Discussed w/Accepting Physician: 14:26 Forms: Patient Portal Access Quality - Quality Measures Quality Measures: N/A - Blood Pressure Screening Does Patient Have Any of the Following: No Blood Pressure Classification: Hypertensive Reading Systolic Measurement: 180 Diastolic Measurement: 91 Screening for High Blood Pressure: < First Hypertensive BP, F/U Documented > [G8950] First Hypertensive Follow-up Interventions: Follow-up with rescreen GT 1 day and LT 4 weeks.
[2019-06-01 11:40] LABS: BLOOD UREA NITROGEN 6 mg/dL (6-20); CREATININE 0.8 mg/dL (0.5-0.9); EST GLOMERULAR FILTRATION RATE > 60 mL/min
[2019-06-01 11:41] LABS: TOTAL PROTEIN 7.5 g/dL (6.6-8.7)
[2019-06-01] MEDS ORDERED: ONDANSETRON HCL IV 4 MG/2 ML VIAL IVP ONE (11:41)
[2019-06-01 11:43] LABS: GLUCOSE,RANDOM 102 mg/dL (74-109)
[2019-06-01 11:45] LABS: ALB/GLOB RATIO 1.2 (1.1-1.8); ALBUMIN 4.1 g/dL (4.0-5.0); ALT/SGPT 11 U/L (<33); AST/SGOT 10 U/L (10.0-35.0)
[2019-06-01 11:46] LABS: ALKALINE PHOSPHATASE 100 U/L (35-104)
--- NOTE | 2019-06-01 12:48 | CT SCAN REPORT ---
EXAMINATION: CT Abdomen and Pelvis without IV Contrast EXAM DATE: 06/01/2019 12:33 PM TECHNIQUE: Standard protocol CT imaging of the abdomen and pelvis was performed without intravenous c ontrast. INDICATION: r flank pain COMPARISON: AP CT 12/04/2017 ENCOUNTER: Not applicable CT ABDOMEN AND PELVIS FINDINGS: Lung Bases: Discoid atelectasis or scarring left base Hepatobiliary: The liver has a normal size with a smooth surface. The gallbladder is absent. There is no biliary dilatation. Pancreas: The pancreas is normal. Spleen: The spleen is not enlarged. Adrenals: The adrenal glands are normal. Kidneys, Ureters, & Bladder: Both kidneys have a normal size and morphology. There is no hydronephro sis. Hyperdense renal papilla bilaterally consistent with medullary tubular nephrocalcinosis. Both ur eters have a normal course and caliber and the urinary bladder a normal morphology and uniform wall t hickness. No ureteral or bladder calculi are identified. Gastrointestinal: The stomach and small bowel are normal with no obstruction or inflammation. Appende ctomy. The large bowel is within normal limits. Reproductive Organs: uterus. Lymphatic System: There is no adenopathy within the abdomen or pelvis. Vasculature: Normal caliber abdominal aorta Peritoneum: No free fluid, free air, or inflammation Abdominal wall & Musculoskeletal: No suspicious bone lesions. Postoperative change anterior abdominal wall. Subcutaneous edema lower anterior abdomen greater on the right. No focal fluid collection or d rainable abscess. Assessment of the solid organs, soft tissues, and vascular structures is overall limited on noncontra st imaging, IMPRESSION: 1. Discoid atelectasis or scarring left base 2. Cholecystectomy 3. Medullary tubular nephrocalcinosis 4. uterus 5. Postop anterior abdominal wall, subcutaneous edema bilaterally greater on the right no drainable a bscess. Dictated by: Eros Romero MD on 06/01/2019 12:37 PM. .
--- NOTE | 2019-06-01 12:53 | CT ANGIOGRAM REPORT ---
EXAMINATION: CT Angiography of the Thorax EXAM DATE: 06/01/2019 12:36 PM TECHNIQUE: Standard protocol CT angiogram images were obtained through the chest following the admini stration of intravenous contrast. Coronal and sagittal MIP 3-D reformations were performed. IV Contrast: The amount and type of contrast are recorded in the medical record. INDICATION: postop back pain/cp. COMPARISON: 07/15/2014 ENCOUNTER: Not applicable FINDINGS: Pulmonary Artery: There is a small embolus seen at the level of bifurcation of the artery supplying t he posterior basilar segment of the right lower lobe. There are no additional pulmonary emboli seen. Aorta: No thoracic aortic aneurysm or dissection. Right Heart Strain: None obvious. Heart : Borderline heart size. Small pericardial effusion. Lidia and Mediastinum: Few prominent axillary lymph nodes, the largest in the right axilla. Several sh otty hilar and mediastinal lymph nodes. No gross lymphadenopathy. Lung Parenchyma: Mild coarse strandy/dependent atelectasis. Central Airways: Unremarkable. Pleural Effusion: Tiny pleural effusions. No pneumothorax. Upper Abdomen: Unremarkable upper abdomen as seen. Musculoskeletal and Chest Wall: Mild/moderate arthrosis/spondylosis. No lytic or blastic lesions of t he bony thorax. No acute bony findings. IMPRESSION: 1. Tiny acute right pulmonary embolic event, a small embolus seen at the level of bifurcation of the artery supplying the posterior basilar segment of the right lower lobe. 2. Tiny pleural effusions. Question slight fluid overload. 3. Mild coarse strandy/dependent atelectasis. Dictated by: Raul Alejandra MD on 06/01/2019 12:42 PM. .
[2019-06-01 13:50] LABS: PARTIAL THROMBOPLASTIN TIME 28.7 SECONDS (24.5-39.1); PROTHROMBIN TIME (PATIENT) 10.2 SECONDS (9.5-12.1)
[2019-06-01] MEDS ORDERED: HEPARIN SODIUM/D5W 25,000 UNITS/500 ML BAG IV SCH (14:30)
[2019-06-01 15:14] LABS: URINE APPEARANCE CLEAR; URINE BILIRUBIN NEGATIVE (NEGATIVE); URINE BLOOD MODERATE (NEGATIVE); URINE COLOR YELLOW; URINE GLUCOSE (UA) NEGATIVE (NEGATIVE); URINE KETONE NEGATIVE (NEGATIVE); URINE LEUKOCYTE ESTERASE NEGATIVE (NEGATIVE); URINE NITRITE NEGATIVE (NEGATIVE); URINE PROTEIN TRACE (NEGATIVE); URINE UROBILINOGEN 0.2 E.U./dL (0.20 - 1.00)
[2019-06-01 15:46] LABS: URINE EPITHELIAL CELLS 0 - 2 (FEW); URINE WBC 0 - 2 (0-2/hpf)
== END 2019-06-01 15:46 | disposition short-term general hospital (02) ==
LOC: ER 10:53
DX: O88.23 Thromboembolism in the puerperium (principal); O16.5 Unspecified maternal hypertension, complicating the puerperium; O99.335 Smoking (tobacco) complicating the puerperium; F17.210 Nicotine dependence, cigarettes, uncomplicated
CPT/HCPCS: 99285 ×2; 96376; 96365; 96375; 85025; 85730; 85610; 80053; 81001; 71275; 74176; 93005; Q9967; J1885; J2405; J1170; 93010; J7030